=== PATIENT | female | born 1980 | race Caucasian/White ===

== ENCOUNTER 2020-12-13 12:05 | Outpatient (CLI) | payer BC, SELFPAY ==
--- NOTE | 2020-12-13 12:21 | XR_ITS ---
WS: [id number] Chest 2 views, 12/13/2020 Clinical Data: CHEST PAIN Comparison: Portable chest, 06/10/2017. Findings: No nodules, masses or effusions are seen. The heart is normal. The pulmonary vascularity is not increased. No pneumonia or pneumothorax is seen. XR/XR chest 2V* [id number] Impression: Negative chest.
== END 2020-12-13 12:06 | disposition home or self-care (01) ==
LOC: RAD 12:13
PROVIDERS: PCP Nurse Practitioner; Visit Provider Nurse Practitioner
DX: R07.9 Chest pain, unspecified (principal)
CPT/HCPCS: 71046

== ENCOUNTER 2023-06-25 08:51 | Emergency (ER) | payer OTHER, SELFPAY ==
--- NOTE | 2023-06-25 08:55 | ECG_ITS ---
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 Measurements Intervals [place] Rate: 67 P: 53 ME: 165 QRS: 42 QRSD: 85 T: 29 QT: 393 QTc: 415 Interpretive Statements SINUS RHYTHM WITH OCCASIONAL VENTRICULAR PREMATURE COMPLEXES No previous ECG available for comparison Electronically Signed On 06-25-2023 14:58:10 CDT by Taras Hong M.D. [id number] f
[2023-06-25 08:56] VITALS: BP 129/90; PULSE 67; RESP 18; TEMP 36.8; O2SAT 100; BMI 30.7
--- NOTE | 2023-06-25 09:00 | CT_ITS ---
WS: [id number] CT HEAD TECHNIQUE: Noncontrast CT of the head obtained from the skullbase to the vertex. CLINICAL INFORMATION: L sided facial weakness COMPARISON: None. DLP: 1067.[address] scans at [facility] use at least one of these dose optimization techniques: automated e xposure control; mA and/or kV adjustment per patient size (includes targeted exams where dose is matc hed to clinical indication); or iterative reconstruction. FINDINGS: No evidence of intracranial hemorrhage or mass effect. Ventricular system and basal cisterns are jones nt. No extra-axial fluid collections. No evidence of mass or mass effect. Normal tello-white differen tiation. Paranasal sinuses and mastoid air cells are well aerated. .Normal visualized soft tissues. IMPRESSION: 1. No evidence of intracranial hemorrhage or mass effect. 2. No acute intracranial findings. Notified Praveen Marie DO at 06/25/2023 9:11 AM.
--- NOTE | 2023-06-25 09:04 | ED_ITS ---
HPI - General Adult General: Chief complaint: Neuro Symptoms/Deficit Stated complaint: stroke symptoms Time Seen by Provider: 06/25/23 08:53 Source: patient Mode of arrival: ambulatory History of Present Illness: 42-year-old female presents emergency room with onset of symptoms of facial weakness that began intermittently yesterday preceded by pain behind the left ear she is drooping in her eye and difficulty with weakness on the Left side of her face. Symptoms were waxing and waning through the day yesterday much worse this morning when she woke up. She is not on any anticoagulants she has Onset (ago): day(s) (1) Location: face Severity: moderate Relieving factors: none Exacerbating factors: none Associated symptoms: Deny chest pain, confusion, cough, diaphoresis, decreased appetite, dyspnea, fevers/chills, headache(s), malaise, nausea, rash, palpitations, seizures, short of breath, syncope, vomiting or weakness Review of Systems Const: Denies: malaise or diaphoresis Card: Denies: chest pain, palpitations or syncope Resp: Denies: dyspnea GI: Denies: nausea or vomiting : Denies: dysuria, urinary frequency or urinary urgency Musc: Denies: neck pain or back pain Skin/Breast: Denies: rash Neuro: Denies: headache(s) or confusion Physical Exam Const: COMMON NORMALS: no acute distress GENERAL APPEARANCE: cooperative and comfortable ORIENTATION/CONSCIOUSNESS: Yes awake, Yes oriented to person, Yes oriented to place and Yes oriented to time HENMT: COMMON NORMALS: normocephalic, atraumatic and hearing grossly normal bilaterally HEAD & SCALP: normocephalic and atraumatic Resp: COMMON NORMALS: normal respiratory effort, No retractions, No use of accessory muscles and clear to auscultation bilaterally AUSCULTATION: clear to auscultation bilaterally Cardio: COMMON NORMALS: regular rate, regular rhythm and No murmurs present (Cardio) RATE: regular rate RHYTHM: regular rhythm GI: COMMON NORMALS: Soft to palpation and No hepatosplenomegaly present AUSCULTATION: Yes normoactive bowel sounds PALPATION: Yes Soft to palpation, No Tenderness to palpation present (GI), No Guarding due to palpation present (GI) and Yes No hepatosplenomegaly present Extremity: COMMON NORMALS: normal to inspection, capillary refill normal, no clubbing, cyanosis or edema, no calf tenderness and no pedal edema Neuro: SENSORIUM/ORIENTATION: Yes oriented to person, Yes oriented to place and Yes oriented to time Skin: COMMON NORMALS: no rashes or lesions noted GENERAL SKIN EXAM: no rashes or lesions noted Course Vital Signs: Vital signs: Vital Signs Temperature 98.2 F 06/25/23 08:56 Pulse Rate 62 06/25/23 10:10 Respiratory Rate 18 06/25/23 10:10 Blood Pressure 129/90 06/25/23 10:10 Pulse Oximetry 98 06/25/23 10:10 Oxygen Delivery Me thod Room Air 06/25/23 10:10 MDM - General Adult Medical Decision Making Patient presents over 24 hours after onset of symptoms. At worst her stroke score might be a 2 or a 3 however one-point is due to ataxia with the left arm when I removed the pulse oximeter because it was causing her some difficulty with testing she then tested completely normal making her more likely to be x- ray all of these are related to the distribution of the facial nerve. Reviewed the case with Dr. Saab who is on-call he concurs as well it is a facial lik satish facial nerve problem. She is outside the window for any intervention for tPA she does not have a high enough score to be a candidate for embolectomy. 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 After discussion Dr. 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 To have her follow-up with neurology or primary care doctor if not improving or if worsens or changes she should return to the emergency room. Medical Records I reviewed the patient's medical records. Lab Data I reviewed the patient's lab results. 06/25/23 09:10 06/25/23 09:10 Laboratory Results WBC 6.02 10^3/uL (3.29-11.43) 06/25/23 09:10 RBC 4.52 10^6/uL (3.85-5.65) 06/25/23 09:10 Hgb 13.00 g/dL (11.27-16.99) 06/25/23 09:10 Hct 40.0 % (36-47) 06/25/23 09:10 MCV 88.5 fl (85-98) 06/25/23 09:10 MCH 28.8 pg (27-33) 06/25/23 09:10 MCHC 32.5 g/dL (30-55) 06/25/23 09:10 RDW 13.2 % (12.1-15.1) 06/25/23 09:10 Plt Count 211 10^3/cmm (157-399) 06/25/23 09:10 MPV 10.9 fL (7.4-10.4) H 06/25/23 09:10 Neut % (Auto) 67.0 % 06/25/23 09:10 Lymph % (Auto) 22.4 % 06/25/23 09:10 [place] % (Auto) 6.0 % 06/25/23 09:10 Eos % (Auto) 3.7 % 06/25/23 09:10 Baso % (Auto) 0.7 % 06/25/23 09:10 Neut # (Auto) 4.04 10^3/uL (1.8-7.7) 06/25/23 09:10 Lymph # (Auto) 1.4 10^3/uL (0.8-4.8) 06/25/23 09:10 [place] # (Auto) 0.4 10^3/uL (0.2-0.9) 06/25/23 09:10 Eos # (Auto) 0.2 10^3/uL (0.0-0.8) 06/25/23 09:10 Baso # (Auto) 0.0 10^3/uL (0.0-0.1) 06/25/23 09:10 Nucleated RBC % (auto) 0 % 06/25/23 09:10 Nucleated RBCs # 0.0 /100WBC 06/25/23 09:10 Sodium 139 mmol/L (136-145) 06/25/23 09:10 Potassium 3.2 mmol/L (3.5-5.1) L 06/25/23 09:10 Chloride 104 mmol/L (98-107) 06/25/23 09:10 Carbon Dioxide 23 mmol/L (22-29) 06/25/23 09:10 Anion Gap 15.2 (5-19) 06/25/23 09:10 BUN 10 mg/dL (6-20) 06/25/23 09:10 Creatinine 0.7 mg/dL (0.5-0.9) 06/25/23 09:10 GFR Calculation 92.2 mL/min (90-130) 06/25/23 09:10 Glucose 106 mg/dL (65-115) 06/25/23 09:10 POC Glucose 106 mg/dL (70-110) 06/25/23 09:13 Calculated Osmolality 287 mOsm/kg (285-295) 06/25/23 09:10 Calcium 8.9 mg/dL (8.5-10.5) 06/25/23 09:10 Total Bilirubin 0.3 mg/dL (0.15-1.2) 06/25/23 09:10 AST 24 U/L (0-32) 06/25/23 09:10 ALT 24 U/L (0-33) 06/25/23 09:10 Alkaline Phosphatase 47 U/L (35-105) 06/25/23 09:10 Total Protein 7.1 g/dL (6.6-8.7) 06/25/23 09:10 Albumin 4.2 g/dL (3.5-5.2) 06/25/23 09:10 Globulin 2.9 g/dL (1.3-4.6) 06/25/23 09:10 All radiology interpretation(s) finalized by discharge Discharge Plan Discharge Patient Disposition: Home Clinical Impression: Capps's palsy Condition: Stable Prescriptions: New prednisone 20 mg tablet 20 mg PO TID Qty: 21 0RF acyclovir 800 mg tablet 800 mg PO TID Qty: 21 0RF aspirin 81 mg tablet,delayed release (DR/EC) 81 mg PO DAILY Qty: 30 0RF No Action meloxicam 15 mg tablet 15 mg PO DAILY PRN (Reason: ARTHRITIS) Aspir-81 81 mg Tablet,Delayed Release (Dr/Ec) 81 mg PO .TWICE A WEEK albuterol sulfate 90 mcg/actuation HFA aerosol inhaler 2 puff INHALATION Q6H PRN (Reason: Wheezing) Discharge Orders: Discharge ED (Routine); Ordered 06/25/23 Ordered By: Praveen Marie Referrals: Josie Capps NP [Primary Care Provider] - Discharge Diet: Usual diet Discharge Activity: Increase activity as tolerated Patient Instructions: Opioid Safety, Pain Management Activity Restrictions/Additional Instructions: Thank you for choosing [facility] for your healthcare needs today. Please realize this is an emergency room and that we are providing you with a medical screening exam and this may not be complete and all inclusive of all the testing and or work up that you may need to determine your ailment or severity of your illness. It is very important that you follow up as instructed or that you return to the Emergency Department should you have concerns or if your condition changes or worsens in any way. You were seen and evaluated in the emergency room for left-sided facial weakness. The CT of your head was normal. You have what is called Capps's palsy which is a irritation to a branch of the facial nerve. This generally will resolve itself over time. You are given a course of steroids to help improve it. Recommend that you follow-up with neurology Case management will make arrangements for follow-up. Coding Level of Care Code ED Trade Marker for Casey Chew NIH stroke score NIHSS Level Of Consciousness - 1a: 0 Level Of Consciousness Questions - 1b: Both Correct Level Of Consciousness Commands - 1c: Both Correct Best Gaze - 2: Normal Visual Catherine - 3: No Visual Loss Facial Palsy - 4: Minor Paralysis Motor Arm Right - 5: No Drift Motor Arm Left - 5: No Drift Motor Leg Right - 6: No Drift Motor Leg Left - 6: No Drift Limb Ataxia - 7: Absent Sensory - 8: Mild To Moderate Loss Best Language - 9: No Aphasia Dysarthia - 10: Normal Extinction And Inattention - 11: 0 Score Total Score: 2
[2023-06-25 09:12] VITALS: BP 129/90; PULSE 68; RESP 18; O2SAT 100
[2023-06-25 09:19] LABS: Glucose Point of Care 106 mg/dL (70-110)
--- NOTE | 2023-06-25 09:20 | PC.PHAR ---
pt states she takes care of her own medications-pt states about a week ago she finished a medrol dose pack filled 06/12/23 6d/s and benzonatate 100mg tid filled 06/12/23 7d/s-pt and pts states the pt is suppose to take a 81mg aspirin daily but states she only takes 81mg twice a week-
[2023-06-25 09:32] LABS: Basophils % 0.7 %; Eosinophils # 0.2 10^3/uL (0.0-0.8); Eosinophils % 3.7 %; Lymphocytes # 1.4 10^3/uL (0.8-4.8); Lymphocytes % 22.4 %; Mean Corpuscular HGB Conc 32.5 g/dL (30-55); Mean Corpuscular Hemoglobin 28.8 pg (27-33); Mean Corpuscular Volume 88.5 fl (85-98); Mean Platelet Volume 10.9 fL (7.4-10.4); Monocytes # 0.4 10^3/uL (0.2-0.9); Neutrophils # 4.04 10^3/uL (1.8-7.7); Nucleated Red Blood Cells % 0 %; Platelet Count 211 10^3/cmm (157-399); Red Blood Count 4.52 10^6/uL (3.85-5.65); Red Cell Distribution Width 13.2 % (12.1-15.1); White Blood Count 6.02 10^3/uL (3.29-11.43)
[2023-06-25 09:45] LABS: Alanine Aminotransferase 24 U/L (0-33); Albumin Level 4.2 g/dL (3.5-5.2); Alkaline Phosphatase 47 U/L (35-105); Anion Gap 15.2 (5-19); Aspartate Amino Transferase 24 U/L (0-32); Blood Urea Nitrogen 10 mg/dL (6-20); Calcium 8.9 mg/dL (8.5-10.5); Carbon Dioxide 23 mmol/L (22-29); Chloride 104 mmol/L (98-107); Globulin 2.9 g/dL (1.3-4.6); Glomerular Filtration Rate 92.2 mL/min (90-130); Glucose 106 mg/dL (65-115); Osmolality Calculated 287 mOsm/kg (285-295); Potassium 3.2 mmol/L (3.5-5.1); Sodium 139 mmol/L (136-145); Total Bilirubin 0.3 mg/dL (0.15-1.2); Total Protein 7.1 g/dL (6.6-8.7)
[2023-06-25 10:10] VITALS: BP 129/90; PULSE 62; RESP 18; O2SAT 98
== END 2023-06-25 10:58 | disposition home or self-care (01) ==
PROVIDERS: Emergency Provider Family Medicine; PCP Nurse Practitioner
DX: G51.0 Bell's palsy (principal); Z79.82 Long term (current) use of aspirin
CPT/HCPCS: 36416; 70450; 80053; 82962; 85025; 93005; 99285

== ENCOUNTER → 2023-07-15 13:03 | Outpatient (BNVA) | payer OTHER, SELFPAY | PROVIDERS: PCP Family Medicine; Visit Provider Nurse Practitioner Family | DX: R06.2 Wheezing (principal); R07.9 Chest pain, unspecified | CPT/HCPCS: 71046; 93005 ==

== ENCOUNTER → 2025-05-19 11:55 | Outpatient (BNVA) | payer MEDICAID, SELFPAY | PROVIDERS: PCP Family Medicine; Visit Provider Obstetrics & Gynecology | DX: N93.9 Abnormal uterine and vaginal bleeding, unspecified (principal) | CPT/HCPCS: 84443; 85025 ==

== ENCOUNTER 2025-05-29 15:50 | Outpatient (CLI) | payer MEDICAID, SELFPAY ==
--- NOTE | 2025-05-29 16:15 | USR_ITS ---
PROCEDURE INFORMATION: Exam: US Pelvis, Transvaginal, Non-Obstetric Exam date and time: 05/29/2025 4:46 PM Age: 44 years old Clinical indication: Menstruation abnormalities; Irregular menstruation; Additional info: N93.9 - abnormal uterine and vaginal bleeding, unspecified, TECHNIQUE: Imaging protocol: Real-time transvaginal pelvic (non-obstetric) ultrasound with image documentation. Transvaginal imaging was used for better evaluation of the endometrium, adnexa, and/or cervix. COMPARISON: No relevant prior studies available. FINDINGS: Uterus: Uterus measures 9.5 x 4.5 x 6.2 cm. Myometrial echogenicity is mildly heterogeneous, without focal mass identified. Endometrium thickness is within normal limits, measuring 8 mm. Right ovary/adnexa: The right ovary was not visualized. Left ovary/adnexa: The left ovary measures 2.3 x 1.5 x 1.5 cm. Vascular flow is demonstrated in the left ovary. 1.5 cm left ovarian cyst. Urinary bladder: Not imaged. Intraperitoneal space: No free fluid. US/US transvaginal [id number] IMPRESSION: 1. Nonvisualization of the right ovary. 2. No abnormalities identified.
== END 2025-05-29 15:51 | disposition home or self-care (01) ==
LOC: RAD 15:52
PROVIDERS: PCP Nurse Practitioner Family; Visit Provider Obstetrics & Gynecology
DX: N93.9 Abnormal uterine and vaginal bleeding, unspecified (principal); Z90.721 Acquired absence of ovaries, unilateral
CPT/HCPCS: 76830

== ENCOUNTER 2025-06-01 12:01 | Outpatient (CLI) | payer MEDICAID, SELFPAY ==
--- NOTE | 2025-06-01 12:00 | MM_ITS ---
WS: [id number] BILATERAL 3D TOMOSYNTHESIS DIGITAL SCREENING MAMMOGRAPHY WITH CAD CLINICAL INFORMATION: Z12.39 - Encounter for other screening for malignant neop... HISTORY: Screening mammogram. No current complaints. COMPARISON: Outside mammogram 2022 TECHNIQUE: Bilateral CC and MLO views. FINDINGS: The breasts are composed of heterogeneous fibroglandular density tissue, which can limit the detection of small underlying mass lesions. No suspicious mass, asymmetry, calcifications, or architectural distortion. No evidence of malignancy. Stable biopsy clip outer RIGHT breast with stable adjacent ovoid nodule. Similar-appearing nodularity LEFT breast. MM/[place] [id number] IMPRESSION: DENSITY: The breasts are heterogeneously dense, which may obscure small masses. BI-RADS: 2 - Benign FOLLOW UP: 1 Year Follow-up Recommend return to annual screening mammography.
== END 2025-06-01 12:02 | disposition home or self-care (01) ==
LOC: MOBLMAM 12:03
PROVIDERS: PCP Nurse Practitioner Family; Visit Provider Obstetrics & Gynecology
DX: Z12.31 Encounter for screening mammogram for malignant neoplasm of breast (principal); R92.333 Mammographic heterogeneous density, bilateral breasts; N63.10 Unspecified lump in the right breast, unspecified quadrant; N63.20 Unspecified lump in the left breast, unspecified quadrant
CPT/HCPCS: 77067